=== PATIENT | female | born 2000 | race African-American/Black ===

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

== ENCOUNTER 2018-04-07 21:56 | Emergency (ER) | payer MEDICAID ==
[2018-04-07 22:43] LABS: ABS Basophils 0 10^3/ul (0-0.2); ABS Eosinophils 0.1 10^3/ul (0-0.6); ABS Lymphocytes 2.1 10^3/ul (1.0-4.8); ABS Monocytes 0.6 10^3/ul (0-0.8); ABS Neutrophils 6.9 10^3/ul (1.5-7.7); ABS Nucleated RBC 0 10^3/ul; Eosinophil % 1.4 % (0-6); Hematocrit 32 % (35-47); Hemoglobin 11.1 g/dl (12.0-16.0); Lymphocyte % 21.8 % (25-47); Mean Corpuscular HGB Conc 34 g/dl (31-36); Mean Corpuscular Hemoglobin 29 pg (27-31); Mean Corpuscular Volume 85 fL (80-97); Mean Platelet Volume 7.7 um3 (7.4-10.4); Nucleated Red Blood Cells % 0.1; Platelet Count 210 10^3/ul (150-450); Red Blood Count 3.83 10^6/ul (4.00-5.40); Red Cell Distribution Width 15 % (10.5-15); White Blood Count 9.8 10^3/ul (3.5-10.8)
--- NOTE | 2018-04-07 22:56 | ED ---
Throat Pain/Nasal Congestion - HPI Summary HPI Summary: Patient with history of 6 months complains of nosebleed 3 today lasting total 5 minutes, and low bilateral back pain from bending over. Patient has been evaluated by [facility] with normal ultrasound evaluation. Denies any vaginal bleeding or abdominal pain. Denies urinary retention, incontinence , fever, cough, sore throat, CP, and SOB, N/V/D, abdominal pain, change in urine , change in BM. Medical history is none. - History of Current Complaint Chief Complaint: EDGeneral Time Seen by Provider: 04/07/18 22:22 Hx Obtained From: Patient Onset/Duration: Gradual Onset Severity: Mild Associated Signs And Symptoms: Positive: Negative Cough: None - Allergies/Home Medications Allergies/Adverse Reactions: Allergies Allergy/AdvReac Type Severity Reaction Status Date / Time No Known Allergies Allergy Verified 04/07/18 22:07 Home Medications: Home Medications Vit No.129/Iron/Folic [ One Daily] 1 tab PO DAILY 04/07/18 [ History Confirmed 04/07/18] PMH/Surg Hx/FS Hx/Imm Hx Endocrine/Hematology History: Denies: Hx Anticoagulant Therapy Cardiovascular History: Denies: Hx Cardiac Arrest, Hx Myocardial Infarction History: Denies: Hx Dialysis Neurological History: Denies: Hx CVA - Surgical History Surgery Procedure, Year, and Place: none Infectious Disease History: No Infectious Disease History: Denies: Traveled Outside the [place] in Last 30 Days - Family History Known Family History: Negative: Diabetes - Social History Alcohol Use: None Substance Use Type: Reports: None Smoking Status (MU): Never Smoked Tobacco Review of Systems Constitutional: Negative Eyes: Negative Positive: Epistaxis Cardiovascular: Negative Respiratory: Negative Gastrointestinal: Negative Genitourinary: Negative Musculoskeletal: Other Skin: Negative Neurological: Negative Psychological: Normal All Other Systems Reviewed And Are Negative: Yes Physical Exam - Summary Physical Exam Summary: Nasal polyp noted right nostril. No active bleeding here in the ED. Lower lumbar Paraspinal muscles tender to palpation bilaterally. No pain with palpation of abdomen. Triage Information Reviewed: Yes Vital Signs On Initial Exam: Initial Vitals Temp Pulse Resp BP Pulse Ox 98.6 F 69 15 101/56 100 04/07/18 22:00 04/07/18 22:00 04/07/18 22:00 04/07/18 22:00 04/07/18 22:00 Vital Signs Reviewed: Yes Appearance: Positive: Well-Appearing Skin: Positive: Warm Head/Face: Positive: Normal Head/Face Inspection Eyes: Positive: Normal ENT: Positive: Normal ENT inspection, Other - Nasal polyp right nare Neck: Positive: Supple Respiratory/Lung Sounds: Positive: Clear to Auscultation Cardiovascular: Positive: Normal Abdomen Description: Positive: Nontender Musculoskeletal: Positive: Normal Neurological: Positive: Normal Psychiatric: Positive: Normal AVPU Assessment: Alert - Rafy Coma Scale Best Eye Response: 4 - Spontaneous Best Motor Response: 6 - Obeys Commands Best Verbal Response: 5 - Oriented Coma Scale Total: 15 Diagnostics - Vital Signs Vital Signs Temp Pulse Resp BP Pulse Ox 04/07/18 22:00 98.6 F 69 15 101/56 100 - Laboratory Lab Results: Lab Results 04/07/18 Range/Units 22:34 WBC 9.8 (3.5-10.8) 10^3/ul RBC 3.83 L (4.00-5.40) 10^6/ul Hgb 11.1 L (12.0-16.0) g/dl Hct 32 L (35-47) % MCV 85 (80-97) fL MCH 29 (27-31) pg MCHC 34 (31-36) g/dl RDW 15 (10.5-15) % Plt Count 210 (150-450) 10^3/ul MPV 7.7 (7.4-10.4) um3 Neut % (Auto) 70.0 (38-83) % Lymph % (Auto) 21.8 L (25-47) % [place] % (Auto) 6.4 (0-7) % Eos % (Auto) 1.4 (0-6) % Baso % (Auto) 0.4 (0-2) % Absolute Neuts (auto) 6.9 (1.5-7.7) 10^3/ul Absolute Lymphs (auto) 2.1 (1.0-4.8) 10^3/ul Absolute Monos (auto) 0.6 (0-0.8) 10^3/ul Absolute Eos (auto) 0.1 (0-0.6) 10^3/ul Absolute Basos (auto) 0 (0-0.2) 10^3/ul Absolute Nucleated RBC 0 10^3/ul Nucleated RBC % 0.1 Result Diagrams: 04/07/18 22:34 04/07/18 22:34 Lab Statement: Any lab studies that have been ordered have been reviewed, and results considered in the medical decision making process. EENT Course/Dx - Course Course Of Treatment: Patient with history of 6 months complains of nosebleed 3 today lasting total 5 minutes, and low bilateral back pain from bending over. Patient has been evaluated by [facility] with normal ultrasound evaluation. Denies any vaginal bleeding or abdominal pain. Denies urinary retention, incontinence, fever, cough, sore throat, CP, and SOB, N/V/D, abdominal pain, change in urine, change in BM. Medical history is none. Physical exam:Nasal polyp noted right nostril. No active bleeding here in the ED. Lower lumbar Paraspinal muscles tender to palpation bilaterally. No pain with palpation of abdomen. No active bleeding here in the ED. Rx for Flonase for right nasal polyp. Tylenol for back pain. - Diagnoses Provider Diagnoses: Back pain, Nasal polyp Discharge - Sign-Out/Discharge Documenting (check all that apply): Patient Departure - Discharge Plan Condition: Stable Disposition: HOME Prescriptions: Fluticasone NASAL SPRAY 50MCG* [Flonase NASAL SPRAY 50MCG*] 2 spray RIGHT NARE DAILY #1 btl Patient Education Materials: Low Back Strain (ED), Nasal Polyps (ED) Referrals: No Primary Care Phys,NOPCP [Primary Care Provider] - Additional Instructions: Tylenol for back pain. 2 sprays of Flonase daily right nostril for nosebleed. Follow-up with primary care and [facility]. - Billing Disposition and Condition Condition: STABLE Disposition: Home
[2018-04-07 22:59] LABS: EGFR Non-African American 128.8 (>60)
[2018-04-07 23:12] VITALS: BP 99/54
== END 2018-04-07 23:11 | disposition home or self-care (01) ==
LOC: ED 21:56
DX: M54.5 Low back pain (principal); J33.9 Nasal polyp, unspecified; R04.0 Epistaxis
CPT/HCPCS: 36415; 80053; 85025; 99282

== ENCOUNTER 2018-07-12 08:08 | Inpatient (IN) | payer OTHER ==
[2018-07-12] MEDS ORDERED: Lactated Ringers 1000 ML Bag* 1,000 ML IV ONE (09:00)
[2018-07-12] MEDS ORDERED: Lactated Ringers 1000 ML Bag* 1,000 ML IV SCH ×2 (09:00→23:45)
[2018-07-12] MEDS ORDERED: Dinoprostone* 10 MG VAG.SUPP VAGINAL ONE (09:00)
--- NOTE | 2018-07-12 09:52 | HP ---
General Information - Reason for Visit Scheduled induction of labor for postdates at 41 2/7 weeks gestation. - General Information Maternal Age: 17 Grav: 1 Para: 0 SAB: 0 IEA: 0 Estimated Due Date: 07/03/18 Determined By: LMP Maternal Blood Type and Rh: A Positive - Results this Serology/RPR Result: Non-Reactive Rubella Result: Immune HBsAg Result: Negative HIV Result: Negative GBS Culture Result: Negative Past Medical History Delivery History: See Records Pertinent Past Medical History: Non-Contributory Pertinent Past Surgical History: None Pertinent Family History: Non-Contributory - Antepartal Records Antepartal Records: Reviewed, Complicated by: - positive chlamydia, treated successfully Review of Systems Constitutional: Comfortable CV Complaint: No Respiratory: Shortness of Breath: No Gastrointestinal: No Nausea/Vomiting, Normal Bowel Movement Genitourinary: No Dysuria, No Bleeding, No Leaking Fluid Musculoskeletal: No Complaint, No Epigastric Pain Neurological: No Headache, No Visual Changes Movement: Normal Exam Allergies/Adverse Reactions: Allergies No Known Allergies Allergy (Verified 07/02/18 23:57) Vital Signs 07/12/18 08:22 Temperature 98.8 F Pulse Rate 78 Respiratory 16 Rate Blood Pressure 110/57 (mmHg) O2 Sat by Pulse 100 Oximetry - Measurements Height: 5 ft 6 in Weight: 60.328 kg Weight in lbs: [phone] Body Mass Index (BMI): 21.4 Pre- Weight: 50.349 kg Weight Gained This : 21.999 lbs and 0.007 ozs - Exam Breast: Breast Exam Deferred CVA: No CVA Tenderness Extremities: No Edema Heart: Normal Rhythm/Heart Sounds HEENT: No Significant Findings Lungs: Clear Bilaterally Rectal: Rectal Exam Deferred Reflexes: DTR 2+ Thyroid: No Thyromegaly - Abdominal Exam Abdomen Exam: Non-Tender, Fundal Height Consistent with Dates - Ultrasound/Biophysical Profile Ultrasound Status: Not Done Targeted Exam Findings See L&D Outpatient Visit Provider Note for Findings: N/A Estimated Weight: 6.5# Cervical Exam: 1cm Effacement: 50% Station: -2 Presenting Part: Vertex Membrane Status: Intact Bleeding/Discharge: None EFM Findings - External Monitor Findings Baseline Heart Rate: 125 External Monitor Findings: Accelerations Present, No Pattern of Variable or Late Decelerations, Variability Moderate, Baseline Stable Contractions: Irregular, Mild - Pt not aware of ctx, 45-90 Seconds Contraction Frequency: 5-8 minutes Assessment/Plan - Assessment 17 year old at 41 2/7 weeks gestation, here for induction of labor for postdates , no evidence of acidemia, membranes intact, GBS negative. Ham Score of 5. - Obstetrical Risk Factors Obstetrical Risk Factors: Post-Dates - Plan Plan: Cervical Ripening Plan Comment: Discussed options for induction of labor with pt and family. As Ham Score is 5, cervix not yet favorable for Pitocin induction so cervical ripening recommended. Pt agreeable to plan. Pt is already donet, but she is not feeling the contractions at all and they palpate mild. However, because she is already donte will use Cervidil for cervical ripening rather than misoprostol, as it can be removed if she experiences excessive ctx. Pt admitted to Labor and Delivery. Monitoring per protocol. - Date/Time of Admission Date of Admission: 07/12/18 Time of Admission: 09:45
[2018-07-12] MEDS ORDERED: fentaNYL* 50 MCG/ML 2 ML VIAL (100 MCG VIAL) IV SLOW PU ONE (21:38)
[2018-07-12 21:47] LABS: Hematocrit 36 % (35-47); Mean Corpuscular HGB Conc 34 g/dl (31-36); Mean Corpuscular Hemoglobin 28 pg (27-31); Mean Corpuscular Volume 84 fL (80-97); Platelet Count 237 10^3/ul (150-450); Red Blood Count 4.24 10^6/ul (4.00-5.40); Red Cell Distribution Width 15 % (10.5-15); White Blood Count 11.8 10^3/ul (3.5-10.8)
[2018-07-12 22:12] LABS: ABS Basophils 0 10^3/ul (0-0.2); ABS Eosinophils 0.1 10^3/ul (0-0.6); ABS Lymphocytes 2.8 10^3/ul (1.0-4.8); ABS Monocytes 1.1 10^3/ul (0-0.8); ABS Neutrophils 7.9 10^3/ul (1.5-7.7); ABS Nucleated RBC 0 10^3/ul; Eosinophil % 0.6 %; Lymphocyte % 23.2 %; Nucleated Red Blood Cells % 0.1
[2018-07-12] MEDS ORDERED: Oxytocin in LR* 20 UNITS/1,000 ML BAG IVPB ONE (22:58)
[2018-07-12] MEDS ORDERED: Methylergonovine INJ* 0.2 MG/ML 1ML AMP ONE (23:07)
[2018-07-12] MEDS ORDERED: Glycerin ADULT SUPP PR PRN (23:41)
[2018-07-12] MEDS ORDERED: Dibucaine 1% 28.35 GM TUBE PR PRN (23:41)
[2018-07-12] MEDS ORDERED: Ibuprofen TAB* 600 MG PO PRN (23:41)
[2018-07-12] MEDS ORDERED: Witch Hazel PAD* JAR TOPICAL PRN (23:41)
[2018-07-12] MEDS ORDERED: Tetan/Diph/Pertus SYR(Tdap)* 0.5 ML SYR(BOOSTRIX) use SYR IM ONE (23:41)
[2018-07-12] MEDS ORDERED: Oxytocin in LR* 20 UNITS/1,000 ML BAG IVPB SCH (23:45)
--- NOTE | 2018-07-12 23:53 | PROCNOTE ---
[facility] OB: Delivery Note - Delivery A Date of : 07/12/18 Time of : 22:58 [place] Sex: Female Weight at : 2.865 kg Score 1 Minute: 9 Score 5 Minutes: 9 Gestational Age in Weeks and Days at Delivery: 41 Weeks and 2 Days Delivery Method: Spontaneous Vaginal Labor: Induced Did Patient attempt ?: N/A, No Previous Amniotic Fluid: Meconium Anesthesia/Analgesia: IM/IV - Fentanyl x1 Delivered By: Yanet Banda Nursery Level of Nursery: Regular/Bedside - Perineum Perineal Injury: None/Intact Perineal Repair: None - Events Delivery Events of Note: Pitocin Only After Delivery, Precipitous Delivery - Additional Delivery Notes Additional Delivery Notes: Pt admitted to Labor and Delivery for scheduled induction of labor for post- dates at 41 2/7 weeks gestation. Cervix was found to be unfavorable for induction so cervical ripening initiated with Cervadil. After Cervidil had been in for about 10 hours pt reported strong ctx. Cervidil removed. Pt was unable to tolerate cervical exam despite several attempts. Pt given IV Fentanyl to help with labor pain and to allow for cervical exam. At that time, exam was done and patient was 3cm. While up to toilet about an hour later, SROM occurred and pt immediately began to push. noted by RN to be and emergency salazar activated. Pt escorted to bed and coached to push with contractions. Pt pushed effectively with good descent. Pt then birthed the head , OA to BRENT. Shoulders followed with the next push, and placed on maternal abdomen, dried and stimulated with vigorous cry and HR > 100. After pulsation ceased, cord clamped x2 and cut by infant's father. Placenta soon followed, spontaneous and milana. Initial bleeding was brisk. Pitocin administered via IV and fundal massage performed, at which time bleeding ceased. Exam revealed perineum to be intact. Pt and stable at this time, anticipate normal course.
[2018-07-13 06:10] LABS: ABS Basophils 0 10^3/ul (0-0.2); ABS Eosinophils 0 10^3/ul (0-0.6); ABS Lymphocytes 1.9 10^3/ul (1.0-4.8); ABS Monocytes 1.2 10^3/ul (0-0.8); ABS Neutrophils 13.1 10^3/ul (1.5-7.7); ABS Nucleated RBC 0 10^3/ul; Eosinophil % 0 %; Hematocrit 32 % (35-47); Hemoglobin 10.6 g/dl (12.0-16.0); Lymphocyte % 11.9 %; Mean Corpuscular HGB Conc 33 g/dl (31-36); Mean Corpuscular Hemoglobin 28 pg (27-31); Mean Corpuscular Volume 85 fL (80-97); Mean Platelet Volume 8.1 fL (7.4-10.4); Nucleated Red Blood Cells % 0.1; Platelet Count 206 10^3/ul (150-450); Red Blood Count 3.76 10^6/ul (4.00-5.40); Red Cell Distribution Width 15 % (10.5-15); White Blood Count 16.3 10^3/ul (3.5-10.8)
[2018-07-13] MEDS: Docusate CAP* 100 MG PO SCH ×3 (08:19→20:18)
[2018-07-13] MEDS ORDERED: Simethicone TAB* 80 MG TAB.CHEW PO SCH (08:30)
[2018-07-13] MEDS ORDERED: Ferrous Gluconate TAB* 324 MG TAB PO SCH (09:00)
[2018-07-13] MEDS: Acetaminophen TAB* 325 MG PO PRN (20:18)
[2018-07-14] MEDS: Acetaminophen TAB* 325 MG PO PRN (07:59)
[2018-07-14 08:07] VITALS: BP 112/56
[2018-07-14] MEDS: Docusate CAP* 100 MG PO SCH ×2 (09:48→14:14)
== END 2018-07-14 16:00 | disposition home or self-care (01) | DRG 560 ==
LOC: MCHOBOUT 08:08 → MCHOB 09:48
PROVIDERS: ADMIT Midwife; ATTEND Midwife
PROC: 10E0XZZ Delivery of Products of Conception, External Approach (ICD-10-PCS; principal; 2018-07-12)
PROC: 4A1HXCZ Monitoring of Products of Conception, Cardiac Rate, External Approach (ICD-10-PCS; 2018-07-12)
PROC: 3E0P7VZ Introduction of Hormone into Female Reproductive, Via Natural or Artificial Opening (ICD-10-PCS; 2018-07-12)
DX: O48.0 Post-term pregnancy (principal); Z37.0 Single live birth; Z3A.41 41 weeks gestation of pregnancy; O62.3 Precipitate labor; O77.0 Labor and delivery complicated by meconium in amniotic fluid
CPT/HCPCS: 36415; 84112; 85025; 86850; 86900; 86901; 90715; A9270-GY; J2210; J3010

== ENCOUNTER 2018-07-27 15:58 | Emergency (ER) | payer OTHER ==
[2018-07-27 16:14] VITALS: BP 102/68
--- NOTE | 2018-07-27 16:31 | UC ---
Respiratory Complaint HPI - HPI Summary HPI Summary: REports a couple of day sof cough and occasional nasal congestion. denies n/v, fever, sob. has her w/ her today as well. gave 15 days ago. - History of Current Complaint Chief Complaint: UCRespiratory Stated Complaint: SORE THROAT Time Seen by Provider: 07/27/18 16:22 Hx Obtained From: Patient Hx Last Menstrual Period: has 15 day infant ?: No Pain Intensity: 0 - Allergies/Home Medications Allergies/Adverse Reactions: Allergies Allergy/AdvReac Type Severity Reaction Status Date / Time No Known Allergies Allergy Verified 07/27/18 16:14 Home Medications: Home Medications Acetaminophen TAB* [Tylenol TAB*] 325 mg PO Q4H PRN 07/27/18 [History Confirmed 07/27/18] PMH/Surg Hx/FS Hx/Imm Hx - Additional Past Medical History Additional PMH: Recently gave vaginally w/ no issue 15 days ago. GBS neg. per pt. Previously Healthy: Yes Other History Of: Negative For: Anticoagulant Therapy - Surgical History Surgical History: None Surgery Procedure, Year, and Place: none - Family History Known Family History: Negative: Diabetes - Social History Alcohol Use: None Substance Use Type: None Smoking Status (MU): Never Smoked Tobacco Have You Smoked in the Last Year: No - Immunization History Most Recent Influenza Vaccination: n/a Most Recent Pneumonia Vaccination: n\a Review of Systems All Other Systems Reviewed And Are Negative: Yes Constitutional: Positive: Negative Skin: Positive: Negative ENT: Positive: Nasal Discharge. Negative: Sore Throat, Ear Ache, Sinus Congestion, Sinus Pain/Tenderness Respiratory: Positive: Cough Cardiovascular: Positive: Negative Gastrointestinal: Negative: Vomiting, Diarrhea Genitourinary: Negative: Dysuria Neurological: Negative: Headache Physical Exam Triage Information Reviewed: Yes Appearance: Well-Appearing Vital Signs: Initial Vital Signs Temp 97.5 F 07/27/18 16:10 Pulse 70 07/27/18 16:10 Resp 14 07/27/18 16:10 BP 102/68 07/27/18 16:10 Pulse Ox 100 07/27/18 16:10 Vital Signs Reviewed: Yes Eyes: Positive: Conjunctiva Clear ENT: Positive: Pharynx normal, TMs normal Neck: Positive: Supple, Nontender, No Lymphadenopathy Respiratory Exam: Normal Cardiovascular Exam: Normal Neurological: Positive: Alert Skin Exam: Normal UC Diagnostic Evaluation - Laboratory O2 Sat by Pulse Oximetry: 100 Respiratory Course/Dx - Course Course Of Treatment: New mom her ew/ her c/o cough and stuffy nose for a couple of days. Has remained afebrile and able to eat/drink normally. Encouraged pt to cont. to BF her even if she is sick. Strongly encouraged her to get her flu shot. comfort measures for tx. - Differential Dx/Diagnosis Differential Diagnosis/HQI/PQRI: Asthma, Bronchitis, Lower Resp Infection, Other Provider Diagnosis: URI (upper respiratory infection) Discharge - Sign-Out/Discharge Documenting (check all that apply): Patient Departure All imaging exams completed and their final reports reviewed: No Studies - Discharge Plan Condition: Good Disposition: HOME Patient Education Materials: Upper Respiratory Infection (ED) Referrals: No Primary Care Phys,NOPCP [Primary Care Provider] - [facility] [Outside] Additional Instructions: If not improving please follow up with your primary care. Please consider getting the flu shot. - Billing Disposition and Condition Condition: GOOD Disposition: Home
== END 2018-07-27 17:00 | disposition home or self-care (01) ==
LOC: UCEAST 15:58
DX: O99.53 Diseases of the respiratory system complicating the puerperium (principal); J06.9 Acute upper respiratory infection, unspecified
CPT/HCPCS: 99211; G0463

== ENCOUNTER 2019-05-25 11:32 | Emergency (ER) | payer SELFPAY ==
--- OUTSIDE RECORDS SUMMARY | 2019-05-25 13:00 | XMS REPORT | Continuity of Care Document ---
:2000 Author Organization [facility] Address [address] [place] [address] Phone Care Team Providers Name Role Phone Angela Leon NP Unavailable Unavailable Allergies, Adverse Reactions, Alerts Substance Reaction Status No Known Allergies Active Medications Medication Instructions Dosage Effective Dates Status Comments (start - stop) Depo-Provera 150 mg/mL inject 1 milliliter by 150 MG - Active intramuscular syringe intramuscular route every 3 months ondansetron 8 mg 1 ODT administer in - Active disintegrating tablet clinic PRN, november repeat x 1 Depo-Provera 150 mg/mL IM Q 11-13 weeks - Active intramuscular suspension Problems Condition Effective Dates (start Clinical Status Comments - stop) Encounter for surveillance of injectable contraceptive Human immunodeficiency virus - [HIV] counseling Encounter for elective termination of 10 weeks gestation of Encounter for initial prescription of injectable contracep Human immunodeficiency virus - [HIV] counseling Encntr screen for dis of the bld[facility] Encounter for test, result positive Less than 8 weeks gestation of Encounter for oth general cnsl and advice on contraception RhD positive - Active [facility]. Reviewed. Procedures Procedure Date No information Results Test Name Date and Time Measure Units Reference Range Abnormal Flag Status Comments No information Advance Directives Directive Yes / No Effective Date File Name No information Encounters Encounter Practice Location Reason(s) Diagnoses Date Provider Providers Description For Visit Copied on Encounter [facility] [place] Angela. [facility] [address] [place], [address] [place], [place], [place], [place], [address], [id number], [place]. [place] tel: tel: [phone] [facility] Encounter for Jan- [place] Referring [facility] [place] surveillance of Roxanne. Provider: [facility] injectable 9 [address] [place] contraceptiveHuman [place], [address], [address], [address] [place] virus [HIV] [place], St, [place], [place], [place], [place], [address], [place], [id number], [place]. [address].Cons [place] ulting tel: Provider: [id number] NURSE [place] [facility]. [facility] Jan- [facility] [place] Roxanne. [facility] 9 [address] [place], [address] [place], [place], [place], [address], [id number], [place]. [place] tel: [phone] [facility] Encounter for Apr-0 Ilana Referring [facility] [place] elective 5 Carmen. Provider: [facility] termination of 9 [address] [place] [place] [id number] weeks [place] Ilana R, [place], [address], [address] [place] pregnancyEncounter [place], [address], [place], [place], [place], [place], [place] [address], [address]. [id number], injectable tel: tel: [place] contracep [phone] tel: [phone] [facility] Human Mar-1 Carolyn Referring Parenthood [place] immunodeficiency - Angela. Provider: [facility] virus [HIV] 9 [address] [place] counselingEncntr [place] Carolyn J, [place], [address], [address] [place] the bld/bld-form [place], [address], [place], [place], [place]/immun [place], [place], [place] [address], [place], [address]. [id number], for test, [place]. tel:60 [place] result positiveLess tel: [phone] tel:[phone] than 8 weeks [phone] gestation of pregnancyEncounter for oth general cnsl and advice on contraception Family History Family Member Diagnosis Age At Onset 1st degree relative No hx of cancer of breast, colon, endometrium or ovary 1st degree relative No hx of coronary heart disease (female <65, male <55) 1st degree relative No hx of venous thromboembolism Immunizations Vaccine Date Status Comments No information Payers Payer name Insurance type Covered democrat ID Authorization(s) Chalo HIGUERA [facility] CI [id number] Social History Type Description Quantity Date Captured Comments Sex Female Vital Signs Date / Height Weight BMI Pulse Blood Temperature Respiratory Body Head BMI Pulse Inhaled Time: Rate Pressure Rate Surface Circumference percentile Ox Ox Area No information Chief Complaint And Reason For Visit No information Reason For Referral Reason For Referral No information Plan Of Treatment Date Type Action Status No information History Of Present Illness Encounter Date Complaint History Of Present Illness No information Functional Status Date Functional Assessment No information Medications Administered Medication Instructions Dosage Effective Dates (start - stop) Status Comments No information Instructions Date Instruction Additional Information No information Assessments Type Assessment Date No information Goals Health Concern Goal Type Priority Status Date No information Medical Equipment Description Device Shelley Device Identifier Effective Dates (start - stop ) Status No information Mental Status Date Cognitive Assessment No information Health Concerns Observation Date No information Concern Status Date No information
--- OUTSIDE RECORDS SUMMARY | 2019-05-25 13:00 | XMS REPORT | Continuity of Care Document ---
:2000 Author Organization [facility] Address [address] [place] [address] Phone Care Team Providers Name Role Phone Jim PUMP STITCHER, Ayleen Unavailable Unavailable [facility], NURSE [place] Unavailable Unavailable Allergies, Adverse Reactions, Alerts Substance [...] stop) Encounter for surveillance of injectable contraceptive Encounter for surveillance of injectable contraceptive Human immunodeficiency virus - [HIV] counseling Encounter for elective termination of 10 weeks gestation of Encounter for initial prescription of injectable contracep Human immunodeficiency virus - [HIV] counseling Encntr screen for dis of the bld/bld-form org[facility] Encounter for test, result positive Less than 8 weeks gestation of Encounter for oth general cnsl and advice on contraception RhD positive - Active [facility]. Reviewed. Procedures Procedure Date INJECTION OR LAB ONLY VISIT EST INJECTION DEPO/CEFTRIAXONE OTHER Medical Services Contraceptive Telepathist.Svc. Other Telepathist.Svc. STI DEPO Results Test Name Date and Time Measure Units Reference Range Abnormal Flag Status Comments No information Advance Directives Directive Yes / No Effective Date File Name No information Encounters Encounter Practice Location Reason(s) Diagnoses Date Provider Providers Description For Visit Copied on Encounter [facility] [place]en. [address] Provider: [place] injectable [address], [place] contraceptive [place], [place], [address] [facility], [address] [id number]. s, [address] tel:[phone] [address], St, [place], [address] [place], [place], [address]. [id number], tel:[phone] [place] [phone] tel:[phone] sulting [phone] Provider: NURSE [place] [facility]. [facility] Encounter for Bel[facility]. [facility] of [address] Provider: [facility] injectable [address] St, [place], [place], [address], [place], [address] [place], [address] [place]. [address], St, [place], virus [HIV] [place], [place], counseling [place], [id number], [address].Cons [place] ulting tel:[phone] Provider: [id number] NURSE [place] [facility]. [facility] Jan- Belén Oliveira. [facility] [place] [address], [place], [place], [address], [place], [address] [place], [place], [place], [id number], [place] tel:[phone] [facility] Encounter for 0 [facility] Carmen. [address] Provider: Southern termination of [address], [place] [id number] [place], [place], Ilana RCarmelita, 620 weeks gestation [address]. [address] of tel:[phone] [address], St, [place], pregnancyEncount [phone] [place], [place], [place], [address]. [id number], prescription of tel:[phone] [place] injectable [id number] tel:[phone] contracep [phone] [facility] Human Mar-1 Carolyn Referring Parenthood [place] immunodeficiency 9- Angela. 620 Provider: Southern virus [HIV] [address], Angela [place] counselingEncntr [place], [place], Carmelita [place], [address] screen for dis [address], [place]. [address] of the tel: [address], St, [place], bld/bld-form [address] [place], [place], [place], [address]. [id number], mechnsmEncounter tel: [place] for [phone] tel: test, result [phone] positiveLess than 8 weeks gestation of pregnancyEncount er for oth general cnsl and advice on contraception Family History Family Member Diagnosis Age At Onset 1st degree relative No hx of cancer of breast, colon, endometrium or ovary 1st degree relative No hx of coronary heart disease (female <65, male <55) 1st degree relative No hx of venous thromboembolism Immunizations Vaccine Date Status Comments No information Payers Payer name Insurance type Covered republican ID Authorization(s) Chalo HIGUERA [facility] CI [id number] Social History Type Description Quantity Date Captured Comments Alcohol Use Details Unknown Caffeine Use Details Unknown Tobacco Use Status Unknown Smoking Status Never smoker Sex Female Vital Signs Date / Height [...] Information No information Assessments Type Assessment Date assessment Encounter for surveillance of injectable contraceptive Goals Health Concern Goal Type Priority Status Date No information Medical Equipment Description Device Bayard Device Identifier Effective Dates (start - stop ) Status No information Mental Status Date Cognitive Assessment No information Health Concerns Observation Date No information Concern Status Date No information
[2019-05-25 13:04] VITALS: BP 121/54
--- NOTE | 2019-05-25 14:10 | UC ---
Back Pain HPI - HPI Summary HPI Summary: 6 DAYS AGO WHILE AT WORK PATIENT WAS SITTING ON SOME MILK CRATES WHEN SHE SLIPPED OFF AND SCRAPED HER LOWER BACK ON THE FLOOR. HAS SOME RESIDUAL PAIN IN THE PARASPINOUS MUSCLES. NO NUMBNESS OR TINGLING OF HER LOWER EXTREMITIES. NO SADDLE ANESTHESIA. NO LOSS OF BOWEL OR BLADDER CONTROL. - History of Current Complaint Chief Complaint: UCBackPain Stated Complaint: BACK INJURY Time Seen by Provider: 05/25/19 13:40 Hx Obtained From: Patient Hx Last Menstrual Period: has 15 day infant Onset/Duration: Sudden Onset, Lasting Days, Still Present Timing: Constant Severity Initially: Moderate Severity Currently: Moderate Pain Intensity: 7 Pain Scale Used: 0-10 Numeric Character: Sharp Aggravating Factor(s): Movement Alleviating Factor(s): Rest Associated Signs And Symptoms: Positive: Negative - Allergies/Home Medications Allergies/Adverse Reactions: Allergies Allergy/AdvReac Type Severity Reaction Status Date / Time No Known Allergies Allergy Verified 05/25/19 13:04 PMH/Surg Hx/FS Hx/Imm Hx Previously Healthy: Yes Other History Of: Negative For: Anticoagulant Therapy - Surgical History Surgical History: None Surgery Procedure, Year, and Place: none - Family History Known Family History: Positive: Non-Contributory Negative: Diabetes - Social History Alcohol Use: None Substance Use Type: None Smoking Status (MU): Never Smoked Tobacco Have You Smoked in the Last Year: No - Immunization History Most Recent Influenza Vaccination: n/a Most Recent Pneumonia Vaccination: n\a Review of Systems All Other Systems Reviewed And Are Negative: Yes Constitutional: Positive: Negative Skin: Positive: Other - HEALING ABRASION LOW BACK Respiratory: Positive: Negative Cardiovascular: Positive: Negative Gastrointestinal: Positive: Negative Musculoskeletal: Positive: Myalgia. Negative: Decreased ROM Physical Exam Triage Information Reviewed: Yes Appearance: Well-Appearing, No Pain Distress, Well-Nourished Vital Signs: Initial Vital Signs Temp 98.2 F 05/25/19 13:01 Pulse 102 05/25/19 13:01 Resp 18 05/25/19 13:01 BP 121/54 05/25/19 13:01 Pulse Ox 100 05/25/19 13:01 Vital Signs Reviewed: Yes Eyes: Positive: Conjunctiva Clear ENT: Positive: Hearing grossly normal Neck: Positive: Supple Respiratory: Positive: No respiratory distress, No accessory muscle use Cardiovascular: Positive: Pulses Normal Abdomen Description: Positive: Soft Musculoskeletal: Positive: ROM Intact, No Edema, Other: - TTP PARASPINOUS MUSCLES LOW BACK. NO FOCAL BONY TENDERNESS. Neurological: Positive: Alert, Muscle Tone Normal Psychological: Positive: Age Appropriate Behavior Skin: Positive: Other - HEALING ABRASION LOW BACK Back Pain Course/Dx - Differential Dx/Diagnosis Provider Diagnosis: Contusion of lower back Discharge ED - Sign-Out/Discharge Documenting (check all that apply): Patient Departure All imaging exams completed and their final reports reviewed: No Studies - Discharge Plan Condition: Stable Disposition: HOME Prescriptions: Cyclobenzaprine TAB* [Flexeril TAB*] 10 mg PO BID PRN #30 tab PRN Reason: Pain Naproxen [Naproxen 500 mg tab] 500 mg PO BID PRN #30 tablet PRN Reason: Pain Patient Education Materials: Low Back Strain (ED), Contusion in Adults (ED) Forms: *Work Release Referrals: [facility] [Outside] - If Needed Additional Instructions: YOUR SYMPTOMS SHOULD IMPROVE SIGNIFICANTLY OVER THE NEXT 1-2 WEEKS. IF YOU DO NOT IMPROVE EXPECTED FOLLOW-UP WITH YOUR PCP. YOU MAY BENEFIT FROM IMAGING AT THAT TIME. REST. NAPROXEN NEEDED FOR DISCOMFORT. TAKE MUSCLE RELAXER BEFORE BED. BE SURE TO GO THROUGH SLOW RANGE OF MOTION AND STRETCHING EXERCISES DAILY YOU ARE ABLE TO PREVENT STIFFENING UP AND MAKING THE DISCOMFORT WORSE. GO TO THE ED WITHOUT FAIL IF YOU DEVELOP NUMBNESS/TINGLING IN YOUR LEGS, NUMBNESS IN THE GENITAL REGION, LOSS OF BOWEL/BLADDER CONTROL, INTOLERABLE PAIN OR ANY OTHER CONCERNING SYMPTOMS. CALL THE NUMBER BELOW FOR ASSISTANCE IN ESTABLISHING WITH A PCP An additional resource available to assist in finding the appropriate physician for your health care needs is the Physician Referral Center (Janae Wilder). You may contact them by calling [phone]. - Billing Disposition and Condition Condition: STABLE Disposition: Home
== END 2019-05-25 14:25 | disposition home or self-care (01) ==
LOC: UCEAST 11:32
DX: S30.0XXA Contusion of lower back and pelvis, initial encounter (principal); S30.810A Abrasion of lower back and pelvis, initial encounter; W18.40XA Slipping, tripping and stumbling without falling, unspecified, initial encounter; Y92.9 Unspecified place or not applicable
CPT/HCPCS: 99212; G0463

== ENCOUNTER 2019-09-16 14:32 | Emergency (ER) | payer OTHER ==
--- OUTSIDE RECORDS SUMMARY | 2019-09-16 14:39 | XMS REPORT | Continuity of Care Document ---
:2000 Author Organization [facility] Address [address] [place] [address] Phone Care Team Providers Name Role Phone Roxanne Melissa NP Unavailable Unavailable [facility], NURSE OR MA Unavailable [...] contraceptive Encounter for surveillance of injectable contraceptive Encounter for surveillance of injectable contraceptive Human immunodeficiency virus - [HIV] counseling Encounter for elective termination of 10 weeks gestation of Encounter for initial prescription of injectable contracep Human immunodeficiency virus - [HIV] counseling Encntr screen for dis of the bld/bld-form org/immun mechn Encounter for test, result positive Less than 8 weeks gestation of Encounter for oth general cnsl and advice on contraception RhD positive - Active [facility]. Reviewed. Procedures Procedure Date INJECTION DEPO/CEFTRIAXONE INJECTION OR LAB ONLY VISIT EST OTHER Medical Services Contraceptive Lopper.Svc. Other Lopper.Svc. STI DEPO Results Test Name Date and Time Measure Units Reference Range Abnormal Flag Status Comments No information Advance Directives Directive Yes / No Effective Date File Name No information Encounters Encounter Practice Location Reason(s) Diagnoses Date Provider Providers Description For Visit Copied on Encounter [facility] Encounter for Belén Oliveira. Referring [facility] [place] surveillance of [address] Provider: Of Greater injectable [address], [place], [place], [place], [address], [place], [address] [place] [place] [address], [place], [place], [place], [id number], [place] [address].Cons tel:[phone] ulting [phone] Provider: NURSE OR PARVEEN [facility]. [facility] Encounter for Jim Referring [facility] [place] surveillance of Ayleen. [address] Provider: Of Greater injectable [address], [place], contraceptive [place], [place], Raphaelidi [address] [address]. s, [address], [place] tel:+[phone], [place], [address] [place], [id number], [place], [address]. [place] tel:+[phone] tel:[phone] [phone] sulting Provider: NURSE OR PARVEEN [facility]. [facility] Encounter for Belén Oliveira. Referring [facility] [place] surveillance of [address] Provider: Of [facility] injectable [address], [place], [place], [place], [address], [place], [address] [place]. [address], [address], [place], [place], virus [HIV] [place], [id number], [place] [address].Cons tel:[phone] ulting [phone] Provider: NURSE OR PARVEEN [facility]. [facility] Belén Oliveira. [facility] [place] [address] Of Greater [address], [place], [place], [address], [address], [place], [place], [id number], [place] tel:[phone] [facility] Encounter for Ilana Referring [facility] [place] elective 5-201 Carmen. [address] Provider: Of [facility] termination of [address], [place], [place], [place], Ilana R, [address] weeks gestation [address]. [address] , [place] of tel:[phone], [place], [place], pregnancyEncount [address] [place], [id number], [place], [address]. [place] prescription of tel:+60 tel:[phone] injectable [phone] contracep Planned [facility] Human Mar-1 Carolyn Referring Parenthood [place] immunodeficiency 9- Angela. 620 Provider: Of Greater virus [HIV] [address], Angela [place], counselingEncntr [place], [place], Carolyn J, [address] screen [place] dis [address], [place]. [address] , [place] of the tel:+[address], [place], [place], bld/bld-form [address] [place], [id number], [place], [address]. [place] mechnsmEncounter tel:+ tel:[phone] for [phone] test, result positiveLess than 8 weeks gestation of pregnancyEncount [...] information Payers Payer name Insurance type Covered alliance party ID Authorization(s) Chalo HIGUERA [facility] CI [id number] Social History Type Description Quantity Date Captured [...] Date No information Medical Equipment Description Device Cannon Ball Device Identifier Effective Dates (start - stop ) Status No information Mental Status Date Cognitive Assessment No information Health Concerns Observation Date No information Concern Status Date No information
[2019-09-16 14:46] VITALS: BP 128/61
--- NOTE | 2019-09-16 15:01 | UC ---
Throat Pain/Nasal Ayo HPI - HPI Summary HPI Summary: 18-year-old woman comes in with a chief complaint of runny nose sore throat and cough for 3 days. Throat hurts worse when she swallows. She did try some Tylenol which did help some with her symptoms. Today she was coughing so much she relates that her work asked her to leave and go get checked out. No complaint of any shortness of breath. - History of Current Complaint Chief Complaint: UCGeneralIllness Stated Complaint: SORE THROAT Time Seen by Provider: 09/16/19 14:37 Hx Last Menstrual Period: 08/20/19 Pain Intensity: 5 - Allergies/Home Medications Allergies/Adverse Reactions: Allergies Allergy/AdvReac Type Severity Reaction Status Date / Time No Known Allergies Allergy Verified 09/16/19 14:46 Home Medications: Home Medications Medroxyprogesterone Acetate 150 mg IM SEE INSTRUCTIONS 03/20/19 [History Confirmed 09/16/19] Acetaminophen 1 tab PO ONCE PRN 09/16/19 [History Confirmed 09/16/19] Amoxicillin PO (*) [Amoxicillin 875 MG (*)] 875 mg PO BID #20 tab 09/16/19 [Rx] PMH/Surg Hx/FS Hx/Imm Hx Previously Healthy: Yes Other History Of: Negative For: Anticoagulant Therapy - Surgical History Surgical History: None Surgery Procedure, Year, and Place: none - Family History Known Family History: Positive: Non-Contributory Negative: Diabetes - Social History Alcohol Use: None Substance Use Type: None Smoking Status (MU): Never Smoked Tobacco Have You Smoked in the Last Year: No - Immunization History Most Recent Influenza Vaccination: n/a Most Recent Pneumonia Vaccination: n\a Review of Systems All Other Systems Reviewed And Are Negative: Yes Constitutional: Positive: Other - SEE HPI Skin: Positive: Negative Eyes: Positive: Negative ENT: Positive: Sore Throat, Nasal Discharge, Sinus Congestion Respiratory: Positive: Cough Cardiovascular: Positive: Negative Gastrointestinal: Positive: Negative Motor: Positive: Negative Neurovascular: Positive: Negative Musculoskeletal: Positive: Negative Neurological/Mental Status: Positive: Negative Psychological: Positive: Negative Is Patient Immunocompromised?: No Physical Exam Triage Information Reviewed: Yes Appearance: Well-Appearing, No Pain Distress, Well-Nourished Vital Signs: Initial Vital Signs Temp 98.3 F 09/16/19 14:43 Pulse 76 09/16/19 14:43 Resp 18 02/21/20 14:43 BP 128/61 09/16/19 14:43 Pulse Ox 100 09/16/19 14:43 Vital Signs Reviewed: Yes Eye Exam: Normal Eyes: Positive: Conjunctiva Clear ENT: Positive: Pharyngeal erythema, Nasal congestion, Nasal drainage, TMs normal Neck: Positive: Supple Respiratory: Positive: Lungs clear, Normal breath sounds, No respiratory distress Cardiovascular: Positive: RRR Musculoskeletal: Positive: Strength Intact, ROM Intact Neurological: Positive: Alert, Muscle Tone Normal Psychological: Positive: Age Appropriate Behavior Skin Exam: Normal Throat Pain/Nasal Course/Dx - Course Course Of Treatment: DISCUSSED VIRAL VERSES BACTERIAL INFECTIONS AND THE ROLE OF ANTIBIOTICS. THE PATIENT PREFERS TO BE ON ANTIBIOTICS AT THIS TIME. - Differential Dx/Diagnosis Provider Diagnosis: Pharyngitis, Upper respiratory infection Discharge ED - Sign-Out/Discharge Documenting (check all that apply): Patient Departure All imaging exams completed and their final reports reviewed: No Studies - Discharge Plan Condition: Stable Disposition: HOME Prescriptions: Amoxicillin PO (*) [Amoxicillin 875 MG (*)] 875 mg PO BID #20 tab Patient Education Materials: Pharyngitis (ED), Upper Respiratory Infection (ED) Forms: *Work Release Referrals: [facility] [place] [facility] [Outside] Additional Instructions: FOLLOW UP WITH YOUR DOCTOR IF NOT COMPLETELY IMPROVED. GET REEVALUATED SOONER IF NOT IMPROVED OR WORSE OR ANY QUESTIONS OR CONCERNS. - Billing Disposition and Condition Condition: STABLE Disposition: Home
== END 2019-09-16 15:09 | disposition home or self-care (01) ==
LOC: UCEAST 14:32
DX: J02.9 Acute pharyngitis, unspecified (principal); J06.9 Acute upper respiratory infection, unspecified
CPT/HCPCS: 87651; 99212; G0463

== ENCOUNTER 2019-10-18 09:16 | Emergency (ER) | payer OTHER ==
--- NOTE | 2019-10-18 10:44 | UC ---
Throat Pain/Nasal Ayo HPI - HPI Summary HPI Summary: 18 yo female presents with sore throat. She tells me that for the last 3 days she has had post nasal drip and a sore throat. Today feels better and sore throat is nearly resolved. She has not been taking anything OTC for her symptoms. She missed yesterday and today at work and is asking for a work note. She does not smoke. Denies fever, chills, sinus symptoms, cough, SOB, rash. No known positive COVID exposure. - History of Current Complaint Stated Complaint: COUGH/ THROAT PAIN Time Seen by Provider: 10/18/19 10:44 Hx Obtained From: Patient Hx Last Menstrual Period: 08/20/19 Onset/Duration: Sudden Onset Severity: Moderate Pain Intensity: 5 Pain Scale Used: 0-10 Numeric - Allergies/Home Medications Allergies/Adverse Reactions: Allergies Allergy/AdvReac Type Severity Reaction Status Date / Time No Known Allergies Allergy Verified 09/16/19 14:46 Home Medications: Home Medications Medroxyprogesterone Acetate 150 mg IM SEE INSTRUCTIONS 03/20/19 [History Confirmed 10/18/19] Acetaminophen 1 tab PO ONCE PRN 09/16/19 [History Confirmed 10/18/19] PMH/Surg Hx/FS Hx/Imm Hx - Additional Past Medical History Additional PMH: None Other History Of: Negative For: Anticoagulant Therapy - Surgical History Surgical History: None Surgery Procedure, Year, and Place: none - Family History Known Family History: Positive: None Negative: Diabetes - Social History Lives: With Family Alcohol Use: None Substance Use Type: None Smoking Status (MU): Never Smoked Tobacco Have You Smoked in the Last Year: No - Immunization History Most Recent Influenza Vaccination: n/a Most Recent Pneumonia Vaccination: n\a Review of Systems All Other Systems Reviewed And Are Negative: No Constitutional: Positive: Negative Skin: Positive: Negative Eyes: Positive: Negative ENT: Positive: Sore Throat Respiratory: Positive: Negative Cardiovascular: Positive: Negative Gastrointestinal: Positive: Negative Physical Exam - Summary Physical Exam Summary: GENERAL: NAD. WDWN. No pain distress. SKIN: No rashes, sores, lesions, or open wounds. HEENT: Head: AT/NC Eyes: EOM intact. Conjunctiva clear without inflammation or discharge. Ears: Hearing grossly normal. TMs intact, no bulging, erythema, or edema. Nose: Nasal mucosa pink and moist. NTTP maxillary and frontal sinus. Throat: Posterior oropharynx without exudates, erythema, or tonsillar enlargement. Uvula midline. NECK: Supple. Nontender shotty tonsillar LAD b/l. CHEST: CTAB. No r/r/w. No accessory muscle use. Breathing comfortably and in no distress. CV: RRR. Pulses intact. Cap refill <2seconds NEURO: Alert. PSYCH: Age appropriate behavior. Triage Information Reviewed: Yes Vital Signs: Vital Signs: Temp Pulse Resp BP Pulse Ox 97.9 F 65 18 120/64 100 10/18/19 11:30 10/18/19 11:30 10/18/19 11:30 10/18/19 11:30 10/18/19 11:30 Laboratory Tests 10/18/19 10/18/19 11:26 11:30 Influenza A (Rapid) Negative Influenza B (Rapid) Negative Group A Strep Rapid Negative Vital Signs Reviewed: Yes Throat Pain/Nasal Course/Dx - Course Course Of Treatment: POC strep and flu negative. Suspect viral illness as her symptoms are improving today. Discussed COVID testing today, but pt declined. Advised supportive OTC care . - Differential Dx/Diagnosis Provider Diagnosis: Pharyngitis Discharge ED - Sign-Out/Discharge Documenting (check all that apply): Patient Departure All imaging exams completed and their final reports reviewed: No Studies - Discharge Plan Condition: Stable Disposition: HOME Patient Education Materials: Pharyngitis (ED) Forms: *Work Release Referrals: No Primary Care Phys,NOPCP [Primary Care Provider] - Additional Instructions: STREP NEGATIVE Your symptoms are likely from a viral infection. Viral infections do not respond to antibiotics and are limited to the treatment of symptoms. Viral infections typically run their course in 7-10 days. Drink plenty of fluids, especially if you are running any fever. Use salt water gargles several times a day. Take over the counter acetaminophen (Tylenol) or ibuprofen (Advil, Motrin) according to directions as needed for pain or fever. You may also use Chloraseptic spray or Cepacol lonzenges according to directions which contain a numbing medication and can provide some temporary relief from a sore throat. Return here or follow up with your primary care provider in 7 days if symptoms persist. - Billing Disposition and Condition Condition: STABLE Disposition: Home - Attestation Statements Provider Attestation: This patient was not seen by me. I was available for consult. Chart reviewed. RADHA
[2019-10-18 11:30] VITALS: BP 120/64
[2019-10-18 11:41] LABS: Influenza A Molecular Negative (Negative); Influenza B Molecular Negative (Negative)
== END 2019-10-18 11:56 | disposition home or self-care (01) ==
LOC: UCEAST 09:16
DX: J02.9 Acute pharyngitis, unspecified (principal); R09.82 Postnasal drip
CPT/HCPCS: 87651; 99211; G0463